=== PATIENT | male | born 1975 | race Hispanic/Latino ===

== ENCOUNTER 2020-04-26 14:44 | Emergency (ER) | payer BC, SELFPAY ==
--- NOTE | 2020-04-26 16:36 | RAD REPORT ---
EXAM DESCRIPTION: RAD - Hand Left 3 View - 04/26/2020 4:26 pm CLINICAL HISTORY: L fourth finger injury/ disclocation COMPARISON: No comparisons FINDINGS: Linear lucency is noted with minimal displacement involving the distal aspect middle phala nx of the fourth finger, compatible with fracture. This extends into DIP joint.
--- NOTE | 2020-04-26 17:40 | EDPHYS ---
Physician Documentation [facility] Name: New Slater Age: 44 yrs Sex: Male : 1975 Arrival Date: 04/26/2020 Time: 14:46 Bed Waiting Private MD: ED Physician Franklin Ceja HPI: 04/26 17:36 This 44 yrs old Male presents to ER via Ambulatory with complaints of Hand tw4 Injury. 17:36 The patient or guardian reports deformity, injury, pain. The complaints affect the PIP tw4 of left ring finger. Context: The problem was sustained at home, resulted from lifting or pulling, another person. Onset: The symptoms/episode began/occurred just prior to arrival. Modifying factors: The symptoms are alleviated by nothing, the symptoms are aggravated by nothing. Associated signs and symptoms: The patient has no apparent associated signs or symptoms. The patient has not experienced similar symptoms in the past. Historical: - Allergies: 15:02 No Known Allergies; ss - Home Meds: 15:02 None [Active]; ss - PMHx: 15:02 None; ss - PSHx: 15:02 None; ss - Immunization history:: Adult Immunizations up to date. - Social history:: Smoking status: Patient denies any tobacco usage or history of. ROS: 17:36 Constitutional: Negative for fever, chills, and weight loss, Eyes: Negative for injury, tw4 pain, redness, and discharge, Cardiovascular: Negative for chest pain, palpitations, and edema, Respiratory: Negative for shortness of breath, cough, wheezing, and pleuritic chest pain, Abdomen/GI: Negative for abdominal pain, nausea, vomiting, diarrhea, and constipation, Back: Negative for injury and pain, Skin: Negative for injury, rash, and discoloration, Neuro: Negative for headache, weakness, numbness, tingling, and seizure. 17:36 MS/extremity: Positive for injury or acute deformity, decreased range of motion, deformity. Exam: 17:36 Constitutional: This is a well developed, well nourished patient who is awake, alert, tw4 and in no acute distress. Head/Face: Normocephalic, atraumatic. Chest/axilla: Normal chest wall appearance and motion. Nontender with no deformity. No lesions are appreciated. Cardiovascular: Regular rate and rhythm with a normal S1 and S2. No gallops, murmurs, or rubs. Normal PMI, no JVD. No pulse deficits. Respiratory: Lungs have equal breath sounds bilaterally, clear to auscultation and percussion. No rales, rhonchi or wheezes noted. No increased work of breathing, no retractions or nasal flaring. Abdomen/GI: Soft, non-tender, with normal bowel sounds. No distension or tympany. No guarding or rebound. No evidence of tenderness throughout. Back: No spinal tenderness. No costovertebral tenderness. Full range of motion. 17:36 Musculoskeletal/extremity: Extremities: noted in the dorsal aspect of middle phalanx of left ring finger: decreased ROM, deformity, ROM: limited active range of motion due to pain, limited passive range of motion due to pain. Vital Signs: 15:00 BP 124 / 82; Pulse 81; Resp 16; Temp 98.5(TE); Pulse Ox 99% on R/A; Weight 80.74 kg; ss Height 5 ft. 7 in. (170.18 cm); Pain 0/10; 15:00 Body Mass Index 27.88 (80.74 kg, 170.18 cm) ss Procedures: 17:36 Splinting: Splint applied to palmar aspect of middle phalanx of left middle finger tw4 using finger splint, applied by myself. Examined by me, post splint application: neurovascular intact, 2+ distal pulses palpable, brisk capillary refill noted, Patient tolerated well. MDM: 17:36 Differential diagnosis: dislocation, closed fracture, contusion. Data reviewed: vital tw4 signs, nurses notes. Data reviewed: radiologic studies, ultrasound. Data interpreted: Pulse oximetry: Interpretation: normal. Test interpretation: by ED physician or midlevel provider: plain radiologic studies. Counseling: I had a detailed discussion with the patient and/or guardian regarding: the historical points, exam findings, and any diagnostic results supporting the discharge/admit diagnosis, radiology results. 17:39 Patient medically screened. tw4 04/26 15:03 Order name: XRAY Hand LEFT 3 View; Complete Time: 16:57 ss 04/26 17:38 Interpretation: Abnormal. tw4 Administered Medications: 17:55 Not Given (Patient left prior to medication administration): traMADol 50 mg PO once; ss RASS on ADMIN: Combtv4, Very Agttd3, Agttd2, Rstlss1, AlertClm0, Drwsy-1, Lt Sdtn-2, Mod Sdtn-3, Dp Sdtn-4, UnArsble-5 Disposition: 04/26/20 17:39 Discharged to Home. Impression: Displaced fracture of proximal phalanx of left middle finger. - Condition is Stable. - Discharge Instructions: Finger Fracture. - Prescriptions for Tramadol 50 mg Oral Tablet - take 1 tablet by ORAL route every 8 hours as needed; 12 tablet. - Medication Reconciliation Form, Thank You Letter, Antibiotic Education, Prescription Opioid Use form. - Follow up: Private Physician; When: Upon discharge from the Emergency Department; Reason: Recheck today's complaints, Continuance of care, Re-evaluation by your physician. - Problem is new. - Symptoms have improved. Signatures: Dispatcher [employer] EDMS Christina Camilo RN RN ss Wadley, Terrence, MD MD tw4 Corrections: (The following items were deleted from the chart) 17:54 17:39 04/26/2020 17:39 Discharged to Home. Impression: Displaced fracture of proximal ss phalanx of left middle finger. Condition is Stable. Forms are Medication Reconciliation Form, Thank You Letter, Antibiotic Education, Prescription Opioid Use. Follow up: Private Physician; When: Upon discharge from the Emergency Department; Reason: Recheck today's complaints, Continuance of care, Re-evaluation by your physician. Problem is new. Symptoms have improved. tw4
--- NOTE | 2020-04-26 17:40 | ER ---
Nurse's Notes [facility] Name: New Slater Age: 44 yrs Sex: Male : 1975 Arrival Date: 04/26/2020 Time: 14:46 Bed Waiting Private MD: Diagnosis: Displaced fracture of proximal phalanx of left middle finger Presentation: 04/26 15:00 Chief complaint: Patient states: possible L fourth finger dislocation that occurred ss after injuring it 1 hour ago. Pt is able to put it back in place and splint it with surrounding fingers. Coronavirus screen: Client denies travel out of the [place] in the last 14 days. Ebola Screen: Patient denies exposure to infectious person. Patient denies travel to an Ebola-affected area in the 21 days before illness onset. Initial Sepsis Screen: Does the patient meet any 2 criteria? No. Patient's initial sepsis screen is negative. Does the patient have a suspected source of infection? No. Patient's initial sepsis screen is negative. Risk Assessment: Do you want to hurt yourself or someone else? Patient reports no desire to harm self or others. Onset of symptoms was April 26, 2020. 15:00 Method Of Arrival: Ambulatory ss 15:00 Acuity: TORRI 4 ss Historical: - Allergies: 15:02 No Known Allergies; ss - Home Meds: 15:02 None [Active]; ss - PMHx: 15:02 None; ss - PSHx: 15:02 None; ss - Immunization history:: Adult Immunizations up to date. - Social history:: Smoking status: Patient denies any tobacco usage or history of. Screenin:53 Abuse screen: Denies threats or abuse. Denies injuries from another. Nutritional ss screening: No deficits noted. Tuberculosis screening: Never had TB. Fall Risk None identified. Assessment: 15:00 General: Appears in no apparent distress. comfortable, Behavior is calm, cooperative, ss Denies fever, feeling ill, fatigue, chills. Pain: Denies pain. Neuro: Level of Consciousness is awake, Oriented to person, place, time, situation, Housing Liaison are equal bilaterally. Cardiovascular: Pulses are palpable in right radial artery and left radial artery. Respiratory: Airway is patent Respiratory effort is even, unlabored, Respiratory pattern is regular, symmetrical. GI: No signs and/or symptoms were reported involving the gastrointestinal system. EENT: Nares are clear Oral mucosa is moist. Derm: Skin is pink, warm \T\ dry. normal. Musculoskeletal: Range of motion: limited in PIP of left ring finger Swelling absent. 17:53 Reassessment: Patient appears in no apparent distress at this time. Patient and/or ss family updated on plan of care and expected duration. Pain level reassessed. finger splint placed by Dr. Ceja in ER [facility]. Vital Signs: 15:00 BP 124 / 82; Pulse 81; Resp 16; Temp 98.5(TE); Pulse Ox 99% on R/A; Weight 80.74 kg; ss Height 5 ft. 7 in. (170.18 cm); Pain 0/10; 15:00 Body Mass Index 27.88 (80.74 kg, 170.18 cm) ED Course: 14:46 Patient arrived in ED. rg4 15:01 Triage completed. ss 15:02 Arm band placed on right wrist. 16:26 XRAY Hand LEFT 3 View In Process Unspecified. EDNJ 16:57 Franklin Ceja MD is Attending Physician. tw4 17:53 Patient has correct armband on for positive identification. Bed in low position. Call ss light in reach. 17:53 No provider procedures requiring assistance completed. Patient did not have IV access ss during this emergency room visit. Administered Medications: 17:55 Not Given (Patient left prior to medication administration): traMADol 50 mg PO once; RASS on ADMIN: Combtv4, Very Agttd3, Agttd2, Rstlss1, AlertClm0, Drwsy-1, Lt Sdtn-2, Mod Sdtn-3, Dp Sdtn-4, UnArsble-5 Outcome: 17:39 Discharge ordered by . tw4 17:53 Discharged to home ambulatory. 17:53 Condition: good 17:53 Discharge instructions given to patient, Instructed on discharge instructions, follow up and referral plans. medication usage, Demonstrated understanding of instructions, follow-up care, medications, Prescriptions given X 1. 17:54 Patient left the ED. Signatures: Dispatcher [employer] EDNJ Christina Camilo RN RN ss Garcia, Rubi rg4 Franklin Ceja MD MD tw4
[2020-04-26 18:04] VITALS: BP 124/82; TEMP 98.5; O2SAT 99
== END 2020-04-26 17:54 | disposition home or self-care (01) ==
LOC: ER 14:44
PROC: 2W3KX1Z Immobilization of Left Finger using Splint (ICD-10-PCS; principal; 2020-04-26)
DX: S62.633A Displaced fracture of distal phalanx of left middle finger, initial encounter for closed fracture (principal); X58.XXXA Exposure to other specified factors, initial encounter; Y93.89 Activity, other specified; Y92.009 Unspecified place in unspecified non-institutional (private) residence as the place of occurrence of the external cause
CPT/HCPCS: 99283